=== PATIENT | female | born 1945 | race African-American/Black ===

== ENCOUNTER 2017-03-14 00:28 | Inpatient (IN) | payer SELFPAY ==
[~2017-03-14] VITALS: Ht 165.1 cm; Wt 62.2 kg
[2017-03-14] MEDS ORDERED: ONDANSETRON HCL 4MG/2ML VIAL IV STA (02:41)
[2017-03-14] MEDS ORDERED: SODIUM CHLORIDE 0.9% 1,000 ML IV ONE (02:41)
[2017-03-14] MEDS ORDERED: LEVETIRACETAM 500MG PREMIX 100 ML IV ONE (02:45)
[2017-03-14] MEDS ORDERED: LORAZEPAM 2MG/ML CPJ IV ONE (02:45)
[2017-03-14] MEDS ORDERED: LORAZEPAM 2MG/ML CPJ ONE (02:49)
[2017-03-14 03:03] LABS: BASOPHILS % 0.6 % (0.0-2.0); HEMATOCRIT. 40.6 % (36.0-48.0); HEMOGLOBIN. 13.5 g/dL (12.0-16.0); LYMPHOCYTES % 9.8 % (20.0-50.0); MEAN CORPUSCULAR HEMOGLOBIN 29.1 pg (28.0-32.0); MEAN CORPUSCULAR VOLUME 87.2 fL (81.0-99.0); MEAN PLATELET VOLUME 8.8 fl (7.4-10.4); MONOCYTES % 4.1 % (2.0-8.0); NEUTROPHILS % 85.5 % (40.0-76.0); PLATELET 182 x1000/uL (130-400); RED BLOOD CELL COUNT 4.66 mill/uL (4.2-5.4); RED CELL DISTRIBUTION WIDTH 13.6 % (11.6-14.6)
[2017-03-14 03:08] LABS: CHLORIDE 102 mEq/L (98-107)
[2017-03-14 03:18] LABS: CARBON DIOXIDE 23 mEq/L (21-32); ETHANOL BLOOD < 10 mg/dL
[2017-03-14] MEDS ORDERED: DIPHENHYDRAMINE 50MG/ML VIAL IV PRN (07:15)
[2017-03-14] MEDS ORDERED: HYDROMORPHONE HCL/PF 2MG/ML CPJ IV PRN (07:15)
[2017-03-14] MEDS ORDERED: CLONIDINE 0.1MG TABLET PO PRN (07:15)
[2017-03-14] MEDS ORDERED: DOCUSATE SODIUM 100MG CAPSULE PO PRN (07:15)
[2017-03-14] MEDS ORDERED: ONDANSETRON HCL 4MG/2ML VIAL IV PRN (07:15)
[2017-03-14] MEDS ORDERED: MAGNESIUM/ALUMINUM HYDROXIDE/SIMETHICONE 30ML UDC PO PRN (07:15)
[2017-03-14] MEDS ORDERED: LORAZEPAM 2MG/ML CPJ IV PRN (07:15)
[2017-03-14] MEDS ORDERED: HYDROCODONE/ACETAMINOPHEN 5/325MG TABLET PO PRN (07:15)
[2017-03-14] MEDS ORDERED: GUAIFENESIN 200MG/10ML SUGAR FREE UDC PO PRN (07:15)
[2017-03-14] MEDS ORDERED: NA PHOS,M-B/NA PHOS,DI-BA ENEMA 118ML PR PRN (07:15)
[2017-03-14] MEDS ORDERED: ACETAMINOPHEN 325MG TABLET PO PRN (07:15)
[2017-03-14 08:00] VITALS: BP 141/82
[2017-03-14 08:16] LABS: CARBON DIOXIDE 30 mEq/L (21-32); CHLORIDE 106 mEq/L (98-107)
[2017-03-14 09:00] VITALS: BP 141/82
[2017-03-14] MEDS ORDERED: SODIUM CHLORIDE 0.45% 1,000 ML IV SCH (09:15)
[2017-03-14] MEDS ORDERED: ENOXAPARIN 40MG/0.4ML SYR SUBCUT SCH (10:00)
[2017-03-14] MEDS ORDERED: AMLO5TAB4 PO (11:15)
[2017-03-14] MEDS ORDERED: HYDR25TA PO (11:15)
[2017-03-14 12:00] VITALS: BP 127/82
[2017-03-15] MEDS ORDERED: HYDROCHLOROTHIAZIDE 25MG TABLET PO SCH (09:00)
[2017-03-15] MEDS ORDERED: AMLODIPINE 5MG TABLET PO SCH (09:00)
== END 2017-03-14 13:50 | disposition left against medical advice (07) | DRG 53 ==
LOC: ER 00:34 → 7WST 05:44 → EDBEDREQ 05:50 → ENRESERV 07:25
PROVIDERS: ADMIT Internal Medicine; ATTEND Internal Medicine
DX: G40.901 Epilepsy, unspecified, not intractable, with status epilepticus (principal); G93.41 Metabolic encephalopathy; E86.0 Dehydration; E87.6 Hypokalemia; Z53.21 Procedure and treatment not carried out due to patient leaving prior to being seen by health care provider; I10 Essential (primary) hypertension; Z82.49 Family history of ischemic heart disease and other diseases of the circulatory system; Z88.2 Allergy status to sulfonamides
CPT/HCPCS: 36415; 70450; 71010; 80048; 80053; 85025; 99291; G0482; J1953; J2060; J2405; J7030

== ENCOUNTER 2017-05-17 16:50 | Emergency (ER) | payer MEDICARE ==
[~2017-05-17] VITALS: Ht 165.1 cm; Wt 72.0 kg
[~2017-05-17 16:50] MED LIST: AMLO5TAB4 PO; HYDR25TA PO
[2017-05-17] MEDS ORDERED: LEVETIRACETAM 500MG TABLET PO ONE (18:30)
[2017-05-17 18:50] VITALS: BP 133/81
== END 2017-05-17 19:02 | disposition home or self-care (01) ==
LOC: ER 17:49
DX: R56.9 Unspecified convulsions (principal); I10 Essential (primary) hypertension; Z91.14 Patient's other noncompliance with medication regimen; Z91.19 Patient's noncompliance with other medical treatment and regimen
CPT/HCPCS: 99283

== ENCOUNTER 2022-03-27 04:55 | Inpatient (IN) | payer MEDICARE, BC ==
[~2022-03-27] VITALS: Ht 165.1 cm; Wt 56.8 kg
[2022-03-27 06:33] LABS: HEMATOCRIT. 40.7 % (36.0-48.0); HEMOGLOBIN. 13.3 g/dL (12.0-16.0); MEAN CORPUSCULAR HEMOGLOBIN 28.2 pg (28.0-32.0); MEAN CORPUSCULAR VOLUME 86.3 fL (81.0-99.0); MEAN PLATELET VOLUME 8.8 fl (7.4-10.4); PLATELET 187 x1000/uL (130-400); RED BLOOD CELL COUNT 4.71 mill/uL (4.2-5.4); RED CELL DISTRIBUTION WIDTH 15.2 % (11.6-14.6)
[2022-03-27 06:40] LABS: CHLORIDE 107 mEq/L (98-107)
[2022-03-27 06:49] LABS: ETHANOL BLOOD < 10 mg/dL
[2022-03-27 06:57] LABS: CARBAMAZEPINE < 0.5 ug/mL (4-12); PHENOBARBITAL < 2.1 ug/mL (15.0-40.0); VALPROIC ACID < 3.0 ug/mL (50-100)
[2022-03-27] MEDS ORDERED: LEVETIRACETAM 1000MG PREMIX 100 ML IV ONE (07:45)
[2022-03-27 09:03] LABS: PLATELET ESTIMATE NORMAL
[2022-03-27] MEDS ORDERED: HYDRALAZINE 20MG/ML VIAL IV ONE (09:30)
[2022-03-27] MEDS ORDERED: ACETAMINOPHEN 650MG SUPP PR PRN ×2 (10:00)
[2022-03-27] MEDS ORDERED: DOCUSATE SODIUM 100MG CAPSULE PO PRN (10:00)
[2022-03-27] MEDS ORDERED: MAGNESIUM/ALUMINUM HYDROXIDE/SIMETHICONE 30ML UDC PO PRN (10:00)
[2022-03-27] MEDS ORDERED: GUAIFENESIN 200MG/10ML SUGAR FREE UDC PO PRN (10:00)
[2022-03-27] MEDS ORDERED: ACETAMINOPHEN 325MG TABLET PO PRN ×2 (10:00)
[2022-03-27] MEDS ORDERED: CLONIDINE 0.1MG TABLET PO PRN (10:00)
[2022-03-27] MEDS ORDERED: NALOXONE HCL 0.4MG/ML VIAL IV PRN (10:30)
[2022-03-27] MEDS: MORPHINE SULFATE 2 MG/ML CPJ (NOT FOR IM USE) IV PRN ×3 (10:45→22:07)
[2022-03-27] MEDS: ENOXAPARIN 40MG/0.4ML SYR SUBCUT SCH (10:46)
[2022-03-27] MEDS: AMLODIPINE 5MG TABLET PO SCH ×2 (12:00→22:36)
[2022-03-27] MEDS: VALPROATE SODIUM 500 MG in SODIUM CHLORIDE 0.9% 100 ML IV SCH ×2 (12:29→22:52)
[2022-03-27 20:00] VITALS: BP 122/62
[2022-03-27] MEDS ORDERED: LEVETIRACETAM 500MG PREMIX 100 ML IV SCH (21:00)
[2022-03-27] MEDS: LEVETIRACETAM 500MG PREMIX 100 ML IV SCH (22:52)
[2022-03-27] MEDS ORDERED: DEXT 5%/LACTATED RINGERS 1,000 ML IV SCH (23:45)
[2022-03-28] MEDS: DEXT 5%/LACTATED RINGERS 1,000 ML IV SCH ×2 (01:30→12:35)
[2022-03-28 01:57] LABS: CLARITY URINE CLEAR (CLEAR); COLOR URINE YELLOW (YELLOW); KETONES URINE TRACE (NEGATIVE); LEUKOCYTE ESTERASE URINE 1+ (NEGATIVE); NITRITE URINE POSITIVE (NEGATIVE); OCCULT BLOOD URINE 2+ (NEGATIVE); PROTEIN URINE TRACE (NEGATIVE); SPECIFIC GRAVITY URINE 1.024 (1.005-1.030)
[2022-03-28 02:03] LABS: *AMPHETAMINES SCREEN URINE NEGATIVE (NEGATIVE); *BARBITURATES SCREEN URINE NEGATIVE (NEGATIVE); *BENZODIAZEPINES SCREEN URINE NEGATIVE (NEGATIVE); *COCAINE SCREEN URINE NEGATIVE (NEGATIVE); CANNABINOID URINE SCREEN PRESUMTIVE POSITIVE (NEGATIVE); METHADONE URINE SCREEN NEGATIVE (NEGATIVE); OPIATES URINE SCREEN PRESUMTIVE POSITIVE (NEGATIVE); PHENCYCLIDINE URINE SCREEN NEGATIVE (NEGATIVE)
[2022-03-28] MEDS ORDERED: KEPP500 MT (02:14)
[2022-03-28] MEDS ORDERED: VALS80TA30 MT (02:14)
[2022-03-28] MEDS ORDERED: OMEP20CA14 PO (02:14)
[2022-03-28] MEDS ORDERED: QUET25TA PO (02:14)
[2022-03-28] MEDS ORDERED: MELA10CA PO (02:14)
[2022-03-28] MEDS ORDERED: VALP250C3 PO (02:14)
[2022-03-28] MEDS ORDERED: VALP250S4 PO (02:14)
[2022-03-28] MEDS ORDERED: HALO5TAB MT (02:14)
[2022-03-28] MEDS ORDERED: CYAN50009 PO (02:14)
[2022-03-28] MEDS: MORPHINE SULFATE 2 MG/ML CPJ (NOT FOR IM USE) IV PRN (04:06)
[2022-03-28] MEDS: BLOOD SUGAR DIAGNOSTIC STRIP TEST SCH ×4 (06:01→21:00)
[2022-03-28 08:00] VITALS: BP 147/77
[2022-03-28] MEDS: ENOXAPARIN 40MG/0.4ML SYR SUBCUT SCH (09:47)
[2022-03-28] MEDS: LEVETIRACETAM 500MG PREMIX 100 ML IV SCH (09:48)
[2022-03-28] MEDS: AMLODIPINE 5MG TABLET PO SCH ×2 (10:05→22:50)
[2022-03-28 12:00] VITALS: BP 142/85
[2022-03-28] MEDS: VALPROATE SODIUM 500 MG in SODIUM CHLORIDE 0.9% 100 ML IV SCH ×2 (13:29→22:48)
[2022-03-28 15:40] LABS: BASOPHILS % 0.4 % (0.0-2.0); EOSINOPHILS % 0.3 % (0.0-5.0); HEMATOCRIT. 37.8 % (36.0-48.0); HEMOGLOBIN. 12.3 g/dL (12.0-16.0); LYMPHOCYTES % 17.2 % (20.0-50.0); MEAN CORPUSCULAR HEMOGLOBIN 27.8 pg (28.0-32.0); MEAN CORPUSCULAR VOLUME 85.4 fL (81.0-99.0); MEAN PLATELET VOLUME 9.1 fl (7.4-10.4); MONOCYTES % 8.8 % (2.0-8.0); NEUTROPHILS % 73.3 % (40.0-76.0); PLATELET 177 x1000/uL (130-400); RED BLOOD CELL COUNT 4.42 mill/uL (4.2-5.4)
[2022-03-28 16:07] LABS: CHLORIDE 109 mEq/L (98-107)
[2022-03-28] MEDS ORDERED: QUETIAPINE FUMARATE 25MG TABLET PO SCH (16:55)
[2022-03-28] MEDS ORDERED: LORAZEPAM 1MG TABLET PO PRN (17:00)
[2022-03-28] MEDS ORDERED: OMEPRAZOLE 20MG CAPSULE EXTENDED RELEASE PO SCH (17:10)
[2022-03-28] MEDS: HALOPERIDOL 5MG TABLET PO SCH (18:05)
[2022-03-28] MEDS: LEVETIRACETAM 500MG TABLET PO SCH (18:06)
[2022-03-28] MEDS ORDERED: POTASSIUM CHLORIDE 20MEQ TABLET SR PO NR (19:15)
[2022-03-28 20:00] VITALS: BP 146/86
[2022-03-28] MEDS ORDERED: MELATONIN 10 MG PO SCH (21:00)
[2022-03-28] MEDS ORDERED: VALPROIC ACID 250MG CAPSULE PO SCH (21:00)
[2022-03-28] MEDS ORDERED: MELATONIN 3MG TABLET PO SCH ×2 (21:00)
[2022-03-29] VITALS: BP 114/75
[2022-03-29 04:00] VITALS: BP 134/81
[2022-03-29] MEDS: DEXT 5%/LACTATED RINGERS 1,000 ML IV SCH (04:17)
[2022-03-29] MEDS: BLOOD SUGAR DIAGNOSTIC STRIP TEST SCH ×2 (06:43→12:10)
[2022-03-29] MEDS ORDERED: PANTOPRAZOLE 40MG DR TABLET PO SCH (07:10)
[2022-03-29 08:00] VITALS: BP 134/94
[2022-03-29] MEDS ORDERED: CEFTRIAXONE 2 G PREMIX 50 ML IV SCH (08:00)
[2022-03-29] MEDS ORDERED: CYANOCOBALAMIN 1000MCG TABLET PO SCH (09:00)
[2022-03-29] MEDS ORDERED: LOSARTAN POTASSIUM 50 MG TABLET PO SCH (09:00)
[2022-03-29] MEDS ORDERED: MEDICATION NOT ON FORMULARY EA (Valsartan 1 TAB) MT SCH (09:00)
[2022-03-29] MEDS ORDERED: MEDICATION NOT ON FORMULARY EA (Cyanocobalamin (Vitamin B-12) (Vitamin B12) 1,000 MCG) PO SCH (09:00)
[2022-03-29] MEDS: LEVETIRACETAM 500MG TABLET PO SCH (09:15)
[2022-03-29] MEDS: HALOPERIDOL 5MG TABLET PO SCH (09:15)
[2022-03-29 09:19] LABS: BASOPHILS % 0.3 % (0.0-2.0); EOSINOPHILS % 1.1 % (0.0-5.0); HEMATOCRIT. 37.7 % (36.0-48.0); HEMOGLOBIN. 12.2 g/dL (12.0-16.0); LYMPHOCYTES % 19.2 % (20.0-50.0); MEAN CORPUSCULAR HEMOGLOBIN 27.8 pg (28.0-32.0); MEAN CORPUSCULAR VOLUME 86.3 fL (81.0-99.0); MEAN PLATELET VOLUME 8.8 fl (7.4-10.4); MONOCYTES % 9.2 % (2.0-8.0); NEUTROPHILS % 70.2 % (40.0-76.0); PLATELET 168 x1000/uL (130-400); RED BLOOD CELL COUNT 4.37 mill/uL (4.2-5.4); RED CELL DISTRIBUTION WIDTH 14.6 % (11.6-14.6)
[2022-03-29 09:38] LABS: CHLORIDE 110 mEq/L (98-107)
[2022-03-29] MEDS ORDERED: CEFTRIAXONE 2 G in DEXT 5% WATER 100 ML IV SCH (10:00)
[2022-03-29] MEDS: VALPROATE SODIUM 500 MG in SODIUM CHLORIDE 0.9% 100 ML IV SCH (10:04)
[2022-03-29] MEDS: AMLODIPINE 5MG TABLET PO SCH (10:23)
[2022-03-29] MEDS: ENOXAPARIN 40MG/0.4ML SYR SUBCUT SCH (10:29)
[2022-03-29 12:00] VITALS: BP 128/81
[2022-03-29] MEDS ORDERED: LEVO500T90 MT (12:09)
[2022-03-29 14:55] VITALS: BP 128/74
[2022-03-30] MEDS ORDERED: CEFTRIAXONE 1,000 MG in DEXTROSE 5% WATER 50 ML IV SCH (09:00)
== END 2022-03-29 16:00 | disposition home or self-care (01) | DRG 101 ==
LOC: ER 04:55 → 8WST 08:55 → EDBEDREQ 09:03 → ER 17:40
PROVIDERS: ADMIT Family Medicine Adult Medicine; ATTEND Family Medicine Adult Medicine
DX: G40.909 Epilepsy, unspecified, not intractable, without status epilepticus (principal); N39.0 Urinary tract infection, site not specified; F03.90 Unspecified dementia, unspecified severity, without behavioral disturbance, psychotic disturbance, mood disturbance, and anxiety; R62.7 Adult failure to thrive; E78.5 Hyperlipidemia, unspecified; E16.2 Hypoglycemia, unspecified; I10 Essential (primary) hypertension; R89.2 Abnormal level of other drugs, medicaments and biological substances in specimens from other organs, systems and tissues; Z88.2 Allergy status to sulfonamides; Z91.14 Patient's other noncompliance with medication regimen; Z68.20 Body mass index [BMI] 20.0-20.9, adult
CPT/HCPCS: 36415; 70551; 71045; 80048; 80053; 80156; 80165; 80184; 80185; 80305; 80320; 81003; 82140; 82550; 82962; 83036; 83735; 83880; 84443; 84484; 85025; 92610; 97110; 97162; 97166; 97530; 99285; J0360; J0696; J1630; J1650; J1953; J2270; J3490; J7050; J7060; J7121; G0480